=== PATIENT | male | born 1990 | race Caucasian/White ===

== ENCOUNTER 2017-08-08 23:59 | Emergency (ER) | payer OTHER ==
[2017-08-09] MEDS ORDERED: ceFAZolin 2,000 MG in DEXTROSE/WATER 1 50ML.BAG IVPB STA (00:04)
[2017-08-09] MEDS ORDERED: DIPH,PERTUS(ACELL)TETVAC-LF 0.5 ML VIAL IM ONE (00:04)
[2017-08-09] MEDS ORDERED: HYDROmorphone 0.5 MG/0.5 ML SYRINGE IVP STA (00:04)
[2017-08-09] MEDS ORDERED: TRANEXAMIC ACID 1,000 MG in SODIUM CHLORIDE 0.9% 250 ML IV ONE (00:05)
[2017-08-09] MEDS ORDERED: TRANEXAMIC ACID 1,000 MG in SODIUM CHLORIDE 0.9% 100 ML IV STA (00:05)
[2017-08-09] MEDS ORDERED: ceFAZolin IN SWFI 2 GM/20 ML SYRINGE IVP ONE (00:15)
[2017-08-09 00:27] LABS: Basophils # (A) 0.1 k/uL (0-0.2); Basophils % (A) 1 %; Eosinophils # (A) 0.2 k/uL (0-0.7); Eosinophils % (A) 2 %; HCT 45.4 % (39.0-53.0); HGB 15.9 gm/dL (13.0-17.5); Lymphocytes # (A) 4.4 k/uL (1.0-4.8); Lymphocytes % (A) 44 %; MCH 31.7 pg (25.0-35.0); MCV 90.4 fL (80.0-100.0); Mean Platelet Volume 7.2; Monocytes # (A) 0.5 k/uL (0-1.0); Monocytes % (A) 5 %; Neutrophils # (A) 4.4 k/uL (1.3-7.7); Neutrophils % (A) 45 %; Platelet Count 302 k/uL (150-450); RBC 5.02 m/uL (4.30-5.90); RDW 13.4 % (11.5-15.5); WBC 9.9 k/uL (3.8-10.6)
[2017-08-09 00:29] LABS: Glucose,Whole Blood 112 mg/dL (75-99)
[2017-08-09 00:32] LABS: INR 1.1 (<1.2); Partial Thromboplastin Time 22.7 sec (22.0-30.0); Prothrombin Time 10.6 sec (9.0-12.0)
[2017-08-09 00:33] LABS: ALT 24 U/L (21-72); AST 32 U/L (17-59); Albumin 4.7 g/dL (3.5-5.0); Alkaline Phosphatase 78 U/L (38-126); Amylase 46 U/L (30-110); Anion Gap 17 mmol/L; Blood Urea Nitrogen 8 mg/dL (9-20); Calcium 9.3 mg/dL (8.4-10.2); Carbon Dioxide 25 mmol/L (22-30); Chloride 103 mmol/L (98-107); Glucose 110 mg/dL (74-99); Lipase 183 U/L (23-300); Potassium 4.3 mmol/L (3.5-5.1); Sodium 145 mmol/L (137-145); Total Bilirubin 0.6 mg/dL (0.2-1.3); Total Protein 7.5 g/dL (6.3-8.2)
[2017-08-09 00:36] LABS: Alcohol 264 mg/dL
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
[2017-08-09 00:53] LABS: Creatine Kinase 179 U/L (55-170)
[2017-08-09 01:06] LABS: Creatine Kinase MB 0.9 ng/mL (0.0-2.4); Troponin I <0.012 ng/mL (0.000-0.034)
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
[2017-08-09 01:47] VITALS: TEMP 97.5
[2017-08-09 03:18] VITALS: BP 136/82; PULSE 118; RESP 12
--- NOTE | 2017-08-11 06:30 | CDI ---
Dear [facility] Please do addendum size of the laceration. Thank you, Alivia Mir, Street Contractor. If you have any questions, please contact Projection Technician at [phone]. [facility]
== END 2017-08-09 01:29 | disposition short-term general hospital (02) ==
LOC: EC 23:59
DX: S01.01XA Laceration without foreign body of scalp, initial encounter (principal); T79.4XXA Traumatic shock, initial encounter; F10.129 Alcohol abuse with intoxication, unspecified; S08.112A Complete traumatic amputation of left ear, initial encounter; R00.0 Tachycardia, unspecified; R40.2412 Glasgow coma scale score 13-15, at arrival to emergency department; M54.2 Cervicalgia; F17.200 Nicotine dependence, unspecified, uncomplicated; Z23 Encounter for immunization; V48.9XXA Unspecified car occupant injured in noncollision transport accident in traffic accident, initial encounter
CPT/HCPCS: 99291; 12004; 96365; 96375 ×3; 90471; 36415; 93005; 86900; 86901; 80053; 82150; 82550; 82553; 83605; 83690; 84484; 85025; 85610; 85730; 86850; 86920; 80320; 72170; 71045; 72125; 70450; 71260; 74177; 90715; P9016; Q9967; J1170; J0690

== ENCOUNTER 2017-08-17 14:01 | Emergency (ER) | payer OTHER ==
[2017-08-17 14:08] VITALS: BP 180/103; PULSE 112; RESP 16; TEMP 98.9
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
== END 2017-08-17 15:13 | disposition home or self-care (01) ==
LOC: EC 14:01
DX: Z48.89 Encounter for other specified surgical aftercare (principal); R51 Headache; F17.200 Nicotine dependence, unspecified, uncomplicated; V89.2XXD Person injured in unspecified motor-vehicle accident, traffic, subsequent encounter; Y92.410 Unspecified street and highway as the place of occurrence of the external cause
CPT/HCPCS: 99282

== ENCOUNTER → 2017-12-16 | Outpatient (CLI) | payer OTHER ==
--- NOTE | 2017-12-16 14:05 | MR ---
EXAMINATION TYPE: MR cervical spine wo con DATE OF EXAM: 12/16/2017 COMPARISON: Prior cervical spine MRI 08/09/2017, CT cervical spine 08/09/2017 HISTORY: C1 Fracture TECHNIQUE: Multiplanar, multisequence images of the cervical spine were acquired. C2-C3: No evidence for degenerative disc disease. No disc bulge/herniation or protrusion. No Canal stenosis. Foramina are patent bilaterally. C3-C4: No evidence for degenerative disc disease. No disc bulge/herniation or protrusion. No Canal stenosis. Foramina are patent bilaterally. C4-C5: Loss of disc height and signal is present compatible with disc desiccation and degenerative di sc disease, lateral extension of endplate disc complex causes mild foraminal encroachment. There is o nly mild anterior mass effect on the thecal sac. C5-C6: Lateral extension of endplate disc complex causes mild foraminal encroachment right greater th an left. Loss of disc height signal is present. There is associated spondylosis. No significant centr al stenosis. C6-C7: Minimal endplate discogenic marrow signal change and spondylosis present. No evident central c anal stenosis or significant foraminal encroachment. C7-T1: No evidence for degenerative disc disease. No disc bulge/herniation or protrusion. No Canal stenosis. Foramina are patent bilaterally. Edema in the paraspinal musculature on the left has resolved in the interval. Transverse process frac ture at C1 on the left thought to be healed. There is reversal the normal cervical lordosis. There is normal alignment. Cervical spinal cord is of normal signal. Craniovertebral junction relationships are within normal limits. IMPRESSION: Degenerative disc disease. Interval healing suspected at C1, this may be better evaluated with CT.
== END | disposition home or self-care (01) ==
LOC: RADMRIMAIN 12:38 → MERGE 12:45
PROVIDERS: ATTEND Internal Medicine
DX: S12.000D Unspecified displaced fracture of first cervical vertebra, subsequent encounter for fracture with routine healing (principal); M50.321 Other cervical disc degeneration at C4-C5 level
CPT/HCPCS: 72141

== ENCOUNTER → 2021-09-05 | Outpatient (CLI) | payer OTHER ==
--- NOTE | 2021-09-05 16:41 | XR ---
EXAMINATION TYPE: XR lumbosacral spine min 4V DATE OF EXAM: 09/05/2021 COMPARISON: None HISTORY: Low back pain TECHNIQUE: 5 view lumbar spine FINDINGS: There are 5 lumbar-type vertebral bodies. The pedicles are intact. Disc heights are preserv ed. Vertebral body heights are preserved. No spondylolytic defects are evident. Alignment is normal. IMPRESSION: 1. Normal 5 view lumbar spine
--- NOTE | 2021-09-05 16:45 | XR ---
EXAMINATION TYPE: XR cervical spine comp DATE OF EXAM: 09/05/2021 COMPARISON: None HISTORY: Neck pain TECHNIQUE: 5 views cervical spine FINDINGS: Right oblique view is somewhat limited. No obvious foraminal stenosis is present. No forami nal stenosis is evident on the left oblique view. There is slight kyphosis in the sagittal plane. Pos terior spinal lamellar line is intact. Prevertebral space is normal. Odontoid appears unremarkable. D isc height and vertebral body heights are preserved. IMPRESSION: 1. Slight cervical kyphosis which can be related to patient positioning or muscle spasm.
== END | disposition home or self-care (01) ==
LOC: RADXRMAIN 09:29
PROVIDERS: ATTEND Internal Medicine
DX: M40.202 Unspecified kyphosis, cervical region (principal)
CPT/HCPCS: 72050; 72110